=== PATIENT | male | born 2000 | race African-American/Black ===

== ENCOUNTER 2024-09-27 19:33 | Emergency (ER) | payer MEDICAID ==
[~2024-09-27] VITALS: Ht 177.8 cm; Wt 78.0 kg
[2024-09-27 19:39] VITALS: O2SAT 98
[2024-09-27] MEDS: HYDROCODONE/ACETAMINOPHEN 5/325MG TABLET PO STA (20:30)
[2024-09-27] MEDS ORDERED: HYDR-4001 MT (20:34)
[2024-09-27 20:45] VITALS: BP 118/77; PULSE 65; RESP 17; TEMP 36.44736; O2SAT 100
== END 2024-09-27 21:45 | disposition home or self-care (01) ==
LOC: ER 19:33
DX: S89.81XA Other specified injuries of right lower leg, initial encounter (principal); X58.XXXA Exposure to other specified factors, initial encounter; Y93.89 Activity, other specified; Y92.89 Other specified places as the place of occurrence of the external cause; Y99.8 Other external cause status
CPT/HCPCS: 73560; 99283